=== PATIENT | female | born 2005 | race Caucasian/White ===

== ENCOUNTER 2025-06-10 16:12 | Outpatient (CLI) | payer OTHER, SELFPAY ==
--- NOTE | 2025-06-10 16:15 | CRLHL7_ITS ---
For Patients: As a result of the Century Cures Act, medical imaging exams and procedure reports are released immediately into your electronic medical record. You may view this report before your referring provider. If you have questions, please contact your health care provider. INDICATION: RLQ ABD PAIN TECHNIQUE: CT of the abdomen and pelvis was obtained with 90 mL of Isovue 370 intravenous contrast. Oral water was administered. Please note that all CT scans at this facility use dose modulation, iterative reconstruction, and/or weight-based dosing when appropriate to reduce radiation dose to as low as reasonably achievable. COMPARISON: None. FINDINGS: Lower thorax: Normal. Liver and biliary tree: Focal fat is seen adjacent to the falciform ligament. Gallbladder: Normal. Spleen: Normal. Pancreas: Normal. Adrenal glands: Normal. Kidneys and ureters: No hydronephrosis or obstructing renal calculi. Gastrointestinal tract: No evidence of acute appendicitis. Mildly prominent proximal small bowel measuring up to 3.6 centimeter with associated mucosal hyperenhancement (2/53). Peritoneal cavity: Mild mesenteric edema. Bladder: Normal. Pelvic organs: Normal. Vasculature: Normal. Lymph nodes: Normal. Abdominal wall: Normal. Musculoskeletal: Small sclerotic lesion in the right femoral head is favored to represent a bone island. IMPRESSION: 1. No evidence of acute appendicitis. 2. Nonspecific mildly prominent proximal small bowel measuring up to 3.6 centimeter with associated mucosal hyperenhancement. Findings may represent mild enteritis. No evidence of bowel obstruction. Please note that all CT scans at this facility use dose modulation, iterative reconstruction, and/or weight-based dosing when appropriate to reduce radiation dose to as low as reasonably achievable. Dictated by Jonatan Morris MD @ 06/10/2025 6:22:25 PM (Electronically Signed)
== END 2025-06-10 16:13 | disposition home or self-care (01) ==
LOC: CT 16:12
PROVIDERS: PCP Family Medicine; Visit Provider Family Medicine
DX: R10.31 Right lower quadrant pain (principal)
CPT/HCPCS: 74177; T1013; Q9967